=== PATIENT | male | born 1945 | race Caucasian/White ===

== ENCOUNTER 2016-10-11 09:31 | Inpatient (IN) | payer MEDICARE, MEDICAID ==
[2016-10-11] VITALS (13 sets, daily range): BP systolic 80–122; BP diastolic 52–101; PULSE 76–107; RESP 18–20; O2SAT 95–98
[~2016-10-11] VITALS: Ht 170.2 cm; Wt 78.9 kg
[~2016-10-11 09:31] MED LIST: ADV250INHA INH; GLU500 PO; INSLEVPEN SC; METO50TA PO; TAM4 PO; ZES20T PO; ZOC20 PO
--- NOTE | 2016-10-11 09:52 | ED.REPORT ---
HPI-General Illness Date of Service Oct 11, 2016 ED Provider: Ruddy Waters DO Patient is a 71 year old male with a hx of DM, HTN, COPD, and brain tumor who presents to the ED complaining of lightheadedness and dizziness over the last 2 weeks. Associated symptoms include being pale, diaphoretic, generalized weakness , and urinary frequency. He denies cough, fever, chills, chest pain, SOB, abdominal pain, nausea, vomiting, diarrhea, dysuria, urinary retention, numbness , focal weakness, headache, or any other symptoms. He was taken off his seizure medication 2 months ago. Nursing Notes Stated Complaint: DIZZY Chief Complaint: General Complaint Nursing Notes Reviewed: Yes Allergies: Coded Allergies: No Known Allergies (Verified Allergy, Unknown, 10/11/16) Scheduled Flutic/Salmet-Expunged Drug, Do Not Renew! (Advair 250/50-Expunged Drug, Do Not Renew!) 250 Mcg/50 Mcg Disk 1 PUFF INH BID For Asthma/COPD Management. Insulin DETEMIR -Expunged Drug, Do Not Renew! (Levemir-Expunged Drug, Do Not Renew!) 3 Ml Syringe 35 UNIT SC DAILY Lisinopril-Expunged Drug, Do Not Renew! (Lisinopril-Expunged Drug, Do Not Renew! ) 20 Mg Tablet 20 MG PO QAM Metformin-Expunged Drug, Do Not Renew! (Metformin-Expunged Drug, Do Not Renew!) 500 Mg Tablet 500 MG PO BID Metoprolol Tart-Expunged Drug, Do Not Renew! (Metoprolol Tart-Expunged Drug, Do Not Renew!) 50 Mg Tablet 50 MG PO BID Simvastatin-Expunged Drug, Choose New Med! (Simvastatin-Expunged Drug, Choose New Med!) 20 Mg Tablet 20 MG PO HS Tamsulosin-Expunged Drug, Do Not Renew! (Flomax-Expunged Drug, Do Not Renew!) 0.4 Mg Capsule 0.4 MG PO DAILY General Time Seen by MD: 09:41 Chief Complaint Dizziness Hx Obtained From: Patient, Furniture Sales Consultant Arrived By: Walk-in Onset Occurred: More than a week ago... (2 weeks) Symptom Duration: Since onset Severity: Current: No pain currently Severity: Maximum: No pain Past Medical History Past Medical History Notes: Full code as of 2010 Past Medical History Pt is deaf and uses ASL 1. Asthma. 2. BPH. 3. Elevated cholesterol. 4. Diabetes. 5. Gout. 6. Hypertension. 7. History of aortic stenosis. 8. Exertional dyspnea. 9. Compartment syndrome, right thigh. 10. Remote history of heart murmur. 11. Keen procedure. 12. Valvular heart disease 13. COPD 14. DJD 15. brain tumor Past Surgical History Knee surgery R thigh surg brain tumor removal Smoking History Former Smoker Social History Other Social History: Good social support Ambulatory Status Independent Review of Systems +pale Full Review of Systems Constitutional: Denies: Chills, Fever Respiratory: Denies: Non-productive cough, Shortness of breath Cardiovascular: Denies: Chest pain GI: Denies: Abdominal pain, Diarrhea, Nausea, Vomiting Male: Reports Urinary frequency, Denies Dysuria, Denies Urination decreased Skin: Reports Diaphoresis Neurologic: Reports: Dizziness, Lightheaded, Denies: Focal weakness, Headache, Numbness Complete sys rev & neg: except as marked. Physical Exam Vital Signs Vital Signs Date Time Temp Pulse Resp B/P Pulse Ox O2 Delivery O2 Flow Rate FiO2 10/11/16 12:11 93 20 116/101 98 Room Air 10/11/16 10:59 92 20 102/74 97 Room Air 10/11/16 09:35 107 18 95/67 97 Room Air Initial VS: Reviewed, Vital signs abnormal Head / Eyes: Atraumatic, Normocephalic, PERRL Neck: Supple, Full range of motion Skin: Warm, Dry Psychiatric: Mood/affect normal, Behavior normal, Normal thought content General/Constitutional: Awake, Alert, No acute distress Respiratory / Chest: Atraumatic, Breath sounds NL, Breath sounds = bilat, No respiratory distress Heart Rate / Rhythm: Positive: Tachycardia Abdomen: Atraumatic, Soft, Non-tender Neurologic: Oriented X3 [place] of hearing, uses ASL Smile symmetric moving all 4 extremities Interpretation & Diagnostics Lab Results Interpretation Result Diagram: 10/11/16 0953 10/11/16 0953 Test 10/11/16 09:53 10/11/16 11:05 White Blood Count 11.0th/mm3 (3.8-10.1) Red Blood Count 4.98mil/mm3 (4.40-5.80) Hemoglobin 14.5g/dL (13.8-17.2) Hematocrit 41.2% (41.0-50.0) Mean Corpuscular Volume 82.7fL (81-100) Mean Corpuscular Hemoglobin 29.1pg (27.0-35.0) Mean Corpuscular Hemoglobin Concent 35.2% (32.0-37.0) Red Cell Distribution Width 13.6% (12.3-15.4) Platelet Count 230bil/L (150-400) Neutrophils (%) (Auto) 76.3% (40-74) Lymphocytes (%) (Auto) 12.2% (14-46) Monocytes (%) (Auto) 7.4% (4-12) Eosinophils (%) (Auto) 1.7% (0-5) Basophils (%) (Auto) 0.5% (0-3) Prothrombin Time 10.1sec (8.1-12.5) Prothromb Time International Ratio 0.95ratio Activated Partial Thromboplast Time 30.4sec (22.8-33.0) D-Dimer 0.64mg/L FEU (<0.50) Sodium Level 132mEq/L (134-144) Potassium Level 5.2mEq/L (3.5-5.2) Chloride Level 90mEq/L (97-108) Carbon Dioxide Level 22mmol/L (18-29) Blood Urea Nitrogen 58mg/dL (8-27) Creatinine 1.83mg/dL (0.76-1.27) Estimat Glomerular Filtration Rate 39mL/min (>59) Glucose Level 401mg/dL (60-99) Lactic Acid Level 2.6mmol/L (0.4-2.0) Calcium Level 10.1mg/dL (8.5-10.1) Magnesium Level 1.6mg/dL (1.6-2.6) Total Bilirubin 0.5mg/dL (0.0-1.2) Aspartate Amino Transf (AST/SGOT) 23U/L (0-50) Alanine Aminotransferase (ALT/SGPT) 16U/L (0-44) Alkaline Phosphatase 91U/L (25-160) Total Creatine Kinase 142U/L (21-232) Creatine Kinase MB 11.2ng/mL (0.0-10.4) Creatine Kinase MB % 7.9% (0.0-5.0) Troponin T 0.454ug/L (0.0-0.011) Total Protein 7.6g/dL (6.4-8.4) Albumin 4.4g/dL (3.4-5.0) Hold Aldana Top Tube Received (Received) Ketones Negative (Negative) Hold Urine Received (Received) ECG Interpretation ECG Interpretation: Ectopic atrial tachycardia, unifocal Probable left atrial enlargement LBBB - new rate 105 Time: 09:44 Interpreted by: ED physician ECG Interpretation: Sinus rate 89 LBBB Time: 12:37 Interpreted by: ED physician ABG Interpretation ABG Interpretation: pH 7.368 Exam Performed by: Allied health pract Exam Interpreted by: ED physician X-Ray Chest Interpretation Chest Xray Interpretation: IMPRESSION: 1. No acute cardiopulmonary disease. Dictated by: Hiren Montes M.D. on 10/11/2016 at 10:18 Approved by: Hiren Montes M.D. on 10/11/2016 at 10:18 View: Portable, 1 view Interpretation / Wet Read by: Interpret - ED physician CT Head Interpretation IMPRESSION: 1. No acute intracranial abnormality. 2. Postsurgical changes redemonstrated in the right frontal lobe with associated encephalomalacia. 3. Mild chronic white matter small vessel ischemic changes and cerebral volume loss. Dictated by: Hiren Montes M.D. on 10/11/2016 at 10:32 Approved by: Hiren Montes M.D. on 10/11/2016 at 10:34 Study: Head CT no contrast Interpretation / Wet Read by: Interpret - Radiologist Re-Eval/Medical Decision Med Decision/Clinical Course Non-ST elevation [place]. Will admit. Heparin as well as other medications initiated in the ER. Multiple conversations with cardiology. Time of Eval: 11:11 Patient Status: Condition unchanged Re-Evaluation/Progress Note: Rechecked pt who still denies chest pain and SOB. He does admit to dyspnea upon exertion. Discussed lab results and plan for admission. Patient understands and agrees with plan. All questions addressed at this time. Consultation #1: Referral / Consult Name: Johann Berger MD Consulted With: Cardiology Call Returned at: 11:58 Death Claim Clerk: Will see patient, Agrees with eval, Agrees with plan Note: Rechecked pt. Suggests ECHO, Aspirin, Plavix, heparin, atorvastatin, and metoprolol. Will see pt. Consultation #2: Referral / Consult Name: Carson Zheng MD Consulted With: Hospitalist Call Returned at: 12:06 Note: Discussed pt's case. Accepts admit Consultation #3: Referral / Consult Name: Johann Berger MD Consulted With: Cardiology Call Returned at: 12:10 Note: Discussed consultation with hospitalist. Would like consultation with Dr. Borges. Consultation #4: Referral / Consult Name: Alejandro Borges MD Consulted With: Cardiology Call Returned at: 12:14 Note: Discussed pt's case. Will see pt. Counseled Regarding: Diagnosis, Lab results, Need for admission Discharge & Departure Primary Impression: NSTEMI (non-ST elevated myocardial infarction) Disposition: ADMITTED TO HOSPITAL Discharge Condition All VS Reviewed: Yes Condition: Stable Referrals: Sujey Horta PAC (PCP) Crit Care Except Billable Proc Time Spent: 30-74 minutes Services Performed: Patient management by me, Time spent at bedside, Reviewing test results, Reviewing imaging, Discussing patient care, Documentation in record Critical Care Notes: 35 minutes Scribe Attestation Portions of this note were transcribed by Case Rutledge. I, Dr. Waters personally performed the history, physical exam and medical decision-making; I reviewed and confirmed the accuracy of the information in the transcribed note. Signed: Karly Alcazar, 10/11/16 copies to: Sujey Horta Timothy S DO Oct 11, 2016 09:51 CASE RUTLEDGE Oct 11, 2016 09:59
[2016-10-11] MEDS ORDERED: 0.9% Sodium Chloride 1,000 ML IV ONE (09:55)
[2016-10-11 10:12] LABS: BASOPHILS % (AUTO) 0.5 % (0-3); EOSINOPHILS % (AUTO) 1.7 % (0-5); MONOCYTES % (AUTO) 7.4 % (4-12); Mean Corpuscular Hemoglobin 29.1 pg (27.0-35.0); Mean Corpuscular Volume 82.7 fL (81-100); NEUTROPHILS % (AUTO) 76.3 % (40-74); Platelet Count 230 bil/L (150-400)
--- NOTE | 2016-10-11 10:20 | DRSVH ---
PROCEDURE: X-RAY CHEST ONE VIEW, PORTABLE ([id number]) INDICATIONS: sob TECHNIQUE: One view of the chest was acquired. COMPARISON: [facility], CR, XR CHEST 1VW (PORTABLE), 07/07/2015, 12:26. FINDINGS: Surgical changes and devices: None. Lungs and pleura: No pleural effusions or pneumothorax. Lungs are clear. Mediastinum: Mediastinal contours appear normal. Heart size is normal. Bones and chest wall: No suspicious bony lesions. Overlying soft tissues appear unremarkable. IMPRESSION: 1. No acute cardiopulmonary disease. Dictated by: Hiren Montes M.D. on 10/11/2016 at 10:18 Approved by: Hiren Montes M.D. on 10/11/2016 at 10:18
[2016-10-11 10:30] LABS: INR 0.95 ratio
--- NOTE | 2016-10-11 10:36 | DRSVH ---
PROCEDURE: CT BRAIN WITHOUT CONTRAST ([id number]) INDICATIONS: dizziness, h/o brain tumor TECHNIQUE: Noncontrast 4.5 mm thick angled axial sections acquired from the foramen magnum to the vertex, with c oronal reformats. COMPARISON: [facility], CT, CT BRAIN WO CON, 07/07/2015, 11:27. FINDINGS: Image quality: Excellent. CSF spaces: Basal cisterns are patent. No extra-axial fluid collections. There is mild cerebral vo lume loss, with resultant ventricular and sulcal prominence. Brain: No intracranial hemorrhage, mass, or mass effect. There is encephalomalacia within the right frontal lobe redemonstrated consistent with postsurgical changes. There are subcortical, periventric ular and deep white matter hypodensities consistent with mild chronic small vessel ischemic changes. There is intracranial internal carotid artery atherosclerosis. Skull and face: Calvarium and visualized facial bones demonstrate no acute fractures. There are pos t craniotomy changes in the right frontal lobe again noted. Sinuses: Visualized sinuses and mastoids are clear. IMPRESSION: 1. No acute intracranial abnormality. 2. Postsurgical changes redemonstrated in the right frontal lobe with associated encephalomalacia. 3. Mild chronic white matter small vessel ischemic changes and cerebral volume loss. Dictated by: Hiren Montes M.D. on 10/11/2016 at 10:32 Approved by: Hiren Montes M.D. on 10/11/2016 at 10:34
[2016-10-11 10:55] LABS: Magnesium 1.6 mg/dL (1.6-2.6)
[2016-10-11 11:03] LABS: TROPONIN T 0.454 ug/L (0.0-0.011)
[2016-10-11] MEDS ORDERED: Heparin 25K Unit/500mL 0.45 NS 25,000 UNIT in IV Premix 1 EACH IV ONE (11:10)
[2016-10-11] MEDS ORDERED: 0.9% Sodium Chloride 1,000 ML IV SCH ×3 (11:10→13:10)
[2016-10-11] MEDS ORDERED: Heparin 5,000 Unit/mL Inj IVPUSH ONE (11:10)
--- NOTE | 2016-10-11 11:39 | ABG ---
DateTimeAnalyzed 11:30:00 -_ pH ____7.368 - 7.350 7.450 pCO2 ___41.7__ -mmHg 35.0 45.0 pO2 ___42.5__ -mmHg 69.0 116 HCO3- ___23.4__ -mmol/L 22.0 26.0 ABE ___-1.3__ -mmol/L -2.0 2.0 tHb ___13.6__ -g/dL 12.0 18.0 O2Hb ___71.8__ -% COHb ____1.0__ -% 0.0 1.5 MetHb ____1.0__ -% 0.4 1.5 sO2 ___73.3__ -% FIO2 ___21.0__ -% Drawn By Margaret-RN - Date/Time Notified____ 11:38:00 -_ Oxygen Device 1 RA - Notified By lw - Notified Whom ___Dr. O'Aruna - B 758 -mmHg tO2 ___13.7__ -Vol% Carson test N/A -
[2016-10-11 12:05] LABS: Creatine Kinase 142 U/L (21-232)
[2016-10-11] MEDS ORDERED: Insulin Human REGular-Omnicell 100 Unit/mL SUBQ ONE (12:05)
[2016-10-11] MEDS ORDERED: Ondansetron 2 mg/mL 2 mL Inj IVPUSH PRN (13:00)
[2016-10-11] MEDS ORDERED: Polyethylene Glycol (PEG) 17 Gm Powder PO PRN (13:00)
[2016-10-11] MEDS ORDERED: Senna-Docusate 8.6-50 mg Tablet PO PRN (13:00)
[2016-10-11] MEDS ORDERED: Atropine 1 mg/10 mL (Code) Syringe IVPUSH PRN (13:00)
[2016-10-11] MEDS ORDERED: Alum-Mag Hydrox-Simeth 30 mL Suspension PO PRN (13:00)
[2016-10-11] MEDS ORDERED: Heparin 25K Unit/500mL 0.45 NS 25,000 UNIT in IV Premix 1 EACH IV SCH (13:20)
[2016-10-11] MEDS ORDERED: Albuterol-Ipratropium 3 mL Inhalation Solution NEB PRN (13:25)
[2016-10-11] MEDS ORDERED: Glucose 40% Oral Gel 15 Gm Tube PO PRN (13:25)
[2016-10-11] MEDS: Insulin GLARgine 100 Unit/mL Syringe SUBQ SCH ×2 (13:25→21:13)
--- NOTE | 2016-10-11 13:42 | PCM.HPMED ---
Subjective Date of Service Oct 11, 2016 Primary Provider: Admitting Physician: Carson Zheng MD Primary Care Physician: Lucia Baez PA-C Attending Physician: Carson Zheng MD Chief Complaint: Patient is a 71-year-old male from home presented to the ED with dizziness. History of Present Illness: Conclusion carries a medical history that includes diabetes type II insulin- dependent, hypertension, dyslipidemia, and asthma. Per patient, he reports having dizziness this morning while getting up from chair, waiting for a friend's ride to a synagogue. He denies any associated symptoms that includes palpitation, chest pain radiating to the neck or arm, SOB , diaphoresis, or nausea or vomiting. Patient states significant dizziness for the past 2 weeks with any exertion or transiting from a sitting to standing position. Patient has noted significant urinary output with the past week with corresponding increasing polydipsia. Patient reports trying to drink as much water as he can although and does not record how much what he actually taken. Patient denies any headache, sore throat, fevers, chills, night sweats, abdominal pain, judy red blood/ tarry stooling, or unilateral tingling/ numbness. In the ED, patient blood pressure initially soft at 95/67. However rebounded to over 116/101 after 1 L of normal saline. EKG was obtained showed newly diagnosed left bundle branch block Routine lab work revealed an elevated troponin T as well as CK and CK-MB. interventional cardiology first contacted for possible emergent PCI, however due to patient asymptomatic un the setting of acute kidney injury, interventionists recommend maximal medical management. Echocardiogram states that pending. Patient received metoprolol in addition to loading dose of Plavix, atorvastatin, and heparin drip prior to admission onto the medical floor for NSTEMI. Review of Systems: A comprehensive review of systems was conducted with the patient and found to be negative except as above in the History of Present Illness. 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 Diabetes type II Developmental delay History of CHF Congenital deafness Compartment syndrome June 2011 Brain abscess 07/07/2015 Aortic valve stenosis Surgical History Evacuation and incident incision and drainage of abscess right brain 07/09/2015 Family History Mother with lung disease Father with heart disease Social History Hx Alcohol Use: No (QUIT 2009) Hx Substance Use: No Hx Tobacco Use: No Smoking Status: Former Smoker Exam Vital Signs Vital Sign - Last Date Time Temp Pulse Resp B/P Pulse Ox O2 Delivery O2 Flow Rate FiO2 10/11/16 12:11 93 20 116/101 98 Room Air Exam General: No acute distress, appropriately interactive HEENT: Normocephalic, atraumatic. PERRLA, bilateral deafness Neck: No JVD, No bruits. No lymphadenopathy or thyromegaly. Cardiovascular: Regular rate and rhythm with no murmurs, rubs, or gallops appreciated Pulmonary: b/l air sound with no crackles, wheezes, or rhonchi. no use of accessory muscles. Abdomen: +Bowel sound, Soft, nontender, nondistended. Extremities: No clubbing or cyanosis, no lymphedema, no b/l lower leg edema Skin: Normal temperature, turgor, and texture; no rash. No visualized skin ulcer. Neurological: CN II-VII grossly intact, moving equally on all 4 extremities Psychiatric: Normal mood and affect. AOx3 Lab and Diagnostics Result Diagram: 10/11/1695210/11/16952 Assessment & Plan Patient is a 71-year-old male with a medical history significant for diabetes type II, hypertension, dyslipidemia, and asthma presented with dizziness, found to have significant troponin elevation, admitted for NSTEMI in addition to [place]. NSTEMI -Elevated troponin with newly diagnosed left bundle branch block -Received loading dose of Plavix, and cont metoprolol, atorvastatin, currently on heparin drip, holding tamsulosin -Emergent echocardiogram -aerodynamics engineer Dr. Borges, evaluated patient, emergency WOMEN'S APPAREL SALESPERSON not necessary at this juncture -Career Representative Dr. Berger consult [place] -Creatinine function normal last year -Secondary to likely dehydration from auto diuresis, blood sugar 411 -holding lisinopril -Normal saline 100 mL/hr -orthostatics ordered Insulin-dependent diabetes type II -takes home Levemir U100 35u daily -Lantus 20u bid with high sliding scale while in-house -A1c pending Mild leukocytosis -likely stressed induced -UA order Hypertension -cont home metoprolol, holding lisinopril as above Dyslipidemia -Atorvastatin daily -lipid panel pending Asthma -cont home advair -duoneb prn DVT prophylaxis heparin CODE STATUS full code Patient Status: Patient is admitted under inpatient status with expected length of stay GREATER than 2 midnights due to severity of presenting symptoms, risk of adverse event, and complexity of treatment plan. GI Prophylaxis: Not indicated Resuscitation Status: CPR: Attempt Resuscitation Time spent 45 minutes Attending Statement The patient was seen and examined together with on October 11 and I agree with the history, exam findings, and plan as outlined in the note above. I did participate in all aspects of the services provided today, including documentation and the plan of care. This patient will be treated medically. We will trend his troponins. Cardiology has noted his severe aortic stenosis which may well account for many of her symptoms. Anticipate transfer to [facility] in [place] in the next 1-2 days for further evaluation and treatment of his critical aortic stenosis. Victor Manuel Chong DO Oct 11, 2016 13:42 Carson Zheng MD Oct 12, 2016 07:51
--- NOTE | 2016-10-11 14:52 | DRSVH ---
[facility] [address] [place] [place] [address] Echocardiogram Report Name: CHILANGO CALVO LStudy Date: 10/11/2016 Height: 67 in Hospital Exam Location: [facility] Weight: 180 lb Gender: Male BSA: 1.9 m2 : 1945 Age: 71 yrs BP: 116/101 m mHg Reason For Study: NSTEMI Ordering Physician: HOSPITALIST [facility] Performed By: Razia Akhtar Referring Physician: Naz Haas Interpretation Summary The left ventricle is normal in size. The ejection fraction is estimated to be 35-40%. Inferoseptum, apex and the distal anterior wall severely hypokinetic. There is worsening wall motions in inferior wall and the inferoseptum. Compared to the prior exam, the left ventricular function is mildly reduced. The right ventricle is normal size. Right ventricular systolic function is borderline reduced. There is severe mitral regurgitation. Compared to the prior echo study, there has been no change in the severity of mitral regurgitation. The aortic valve is severely calcified. Leaflet mobility is severely reduced. The peak aortic velocity is 3.65 m/sec. The aortic valve mean gradient is 37 mmHg. The peak aortic velocity on the previous exam was 4.2 m/sec. There is severe aortic stenosis.The calculated aortic valve area is 0.6 cm2. There is mild to moderate tricuspid regurgitation. Compared to the prior echo exam, there has been an increase in TR severity. The right ventricular systolic pressure is estimated at 49 mmHg assuming a right atrial pressure of 3 mm Hg. Compared to the prior echo exam, there has been an increase in the severity of pulmonary hypertension. Procedure: A two-dimensional transthoracic echocardiogram with color flow and Doppler was performed. The study quality was technically adequate. Comparison is made with the echocardiogram of 10/04/2015. The patient was in normal sinus rhythm during the exam. The patient had a bundle branch block rhythm during the exam. Left Ventricle: The left ventricle is normal in size. There is mild- moderate concentric left ventricular hypertrophy. There is no thrombus. The ejection fraction is estimated to be 35-40%. Compared to the prior exam, the left ventricular function is reduced. There is moderate global hypokinesis of the left ventricle. There is inferior wall severe hypokinesis. Inferoseptum, apex and the distal anterior wall severely hypokinetic. There is worsening wall motions in inferior wall and the inferoseptum. Assessment of diastolic parameters indicates a restrictive filling pattern of the left ventricle consistent with significantly elevated filling pressures. There has been no significant change since the previous study. Right Ventricle: The right ventricle is normal size. Right ventricular systolic function is borderline reduced. Atria: The left atrium is moderately dilated. The left atrium has mildly increased in size since the prior echo exam. The right atrium is normal in size. The interatrial septum is intact with no evidence for an atrial septal defect. Mitral Valve: The mitral valve leaflets appear mildly thickened, but open well. There is mild mitral annular calcification. The mitral valve chordae are thickened and/or calcified. There is severe mitral regurgitation. Compared to the prior echo study, there has been no change in the severity of mitral regurgitation. Aortic Valve: The aortic valve is severely calcified. Leaflet mobility is severely reduced. The aortic valve mean gradient is 37 mmHg. The peak aortic velocity is 3.65 m/sec. The peak aortic velocity on the previous exam was 4.2 m/sec. The calculated aortic valve area is 0.6 cm2. There is severe aortic stenosis. There is mild aortic regurgitation. Compared to the prior echo study, there has been no change in the severity of aortic regurgitation. Tricuspid Valve: The tricuspid valve is not well visualized, but is grossly normal. There is mild to moderate tricuspid regurgitation. The right ventricular systolic pressure is estimated at 49 mmHg assuming a right atrial pressure of 3 mm Hg. Compared to the prior echo exam, there has been an increase in TR severity. Compared to the prior echo exam, there has been an increase in the severity of pulmonary hypertension. Pulmonic Valve: The pulmonic valve is not well seen, but is grossly normal. There is mild pulmonic regurgitation. Great Vessels: The aortic root is normal size. The ascending aorta could not be visualized. The IVC is of normal diameter and collapses greater than 50% with a sniff. This suggests a low right atrial pressure of 3 mm Hg. Pericardium/ Pleura There is no pericardial effusion. There is an anterior echo-free space consistent with a fat pad. There is no pleural effusion. MMode/2D Measurements & Calculations LVIDd: 5.1 cm RA long axis LVOT diam LVIDs: 3.3 cm LA A2 area: 17.9 cm : 2.0 cm FS: 34.9 % LA A4 area: 19.4 cm RA area IVSd: 1.4 cm LA length (vol): 5.9 cm LVPWd: 1.3 cm LA vol: 50.0 ml : 10.1 cm RA vol: 23.2 ml LA vol index: 25.9 ml/m2RA : 12.0 mm2 LV arreola. diameter/BSA LV sys. diameter/BSA TAPSE: 1.9 cm (cm/m^2): 2.6 (cm/m^2): 1.7 Doppler Measurements & Calculations Ao V2 max MV E max eric MV E/A TR max eric : 347.3 cm/sec : 121.5 cm/sec : 1.6 : 340.2 cm/sec Ao max P.4 mmHg MV A max eric TR max P.3 mmHg Ao mean P.1 mmH.8 cm/sec MV dec time: 0.12 secAo V2 mean : 280.5 cm/sec Ao V2 VTI: 80.9 cm Reading Physician:PM
[2016-10-11 15:26] LABS: APPEARANCE,URINE CLEAR (CLEAR,HAZY); COLOR,URINE STRAW (YELLOW); OCCULT BLOOD,URINE NEGATIVE (NEGATIVE); UROBILINOGEN,URINE NORMAL (NORMAL)
[2016-10-11] MEDS ORDERED: 0.9% Sodium Chloride 250 ML IV ONE (15:45)
[2016-10-11] MEDS: Sodium Chloride LOK Flush 10 mL Syringe IVFLUSH SCH (16:30)
--- NOTE | 2016-10-11 17:51 | CONS ---
[address] [address] CONSULTATION REPORT PATIENT: CHILANGO CALVO : 1945 MR#: [id number] ADMIT: 10/11/2016 JOB ID: [id number] DATE OF SERVICE: 10/11/2016 REASON FOR CONSULT: Hospitalist team asked me to see this patient regarding abnormal troponin, left bundle-branch and dizziness. CHIEF COMPLAINT: Dizziness, shortness of breath. PRESENT HISTORY: The patient is congenitally deaf. He does not speak much, however, I have his power of prosecuting attorney, who communicates with him using facial language. He helped me to get history. This 71-year-old, pleasant male who has a history of severe aortic stenosis with aortic valve area about 0.6 cm2 with LV ejection fraction 40% to 45% with predominantly global hypokinesis, peak aortic valve velocity 4.2 m/sec and mean gradient 42 mmHg based on echocardiogram done in September 2015, with severe mitral regurgitation, history of brain abscess treated about a year ago at [facility], details not available, history of seizure that time, essential hypertension, insulin-requiring diabetes mellitus, who is congenitally deaf, development delay, history of CHF, compartment syndrome, came to the hospital because of above-mentioned chief complaint. The patient lives with his partner. He is able to perform day-to-day activities but from last two weeks he was experiencing dizziness especially transitioning from sitting to standing position. He was also experiencing shortness of breath on exertion, sometimes PND-like episodes but without any chest pain or palpitation. The patient did not have any syncope. Denies any fever or chills, sore throat or rashes or new visual symptoms. He has poor vision as well. No hematuria. No active bleeding. He underwent evaluation in the emergency department. He was found to have left bundle-branch block. Case was discussed with property preservation specialist, Dr. Borges, as well. His troponin was abnormal, hence, Cardiology got involved. The patient underwent echocardiogram today. On echocardiogram, left ventricular size is normal. LV ejection fraction 35% to 40% with global hypokinesis of moderate intensity but worsening inferior wall apex, inferior septum and distal anterior wall hypokinesis. Right ventricular function borderline reduced. No obvious mitral valve prolapse or flail leaflet, however, the patient has severe mitral regurgitation. There appears to be severe aortic stenosis which appears to be low gradient likely due to worsening LV dysfunction. The peak aortic valve velocity at this time is 3.65 m/sec and mean gradient about 37 mmHg. Calculated aortic valve area 0.6 cm2. In September 2015, peak aortic valve velocity was 4.2 m/sec. There is [id number] tricuspid regurgitation and pulmonary artery systolic pressure about 49 mmHg. The patient was seen by Dr. Roblero in the past. In December 2011, he underwent right and left heart catheterization. At that time, he did not have any obvious epicardial significant coronary artery atherosclerotic disease. At that time, calculated aortic valve area was 1.31 cm2. 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 When I asked about previous history of endocarditis, patient denies it. ALLERGIES: No known allergies. MEDICATION: 1. Advair 1 puff twice a day. 2. Levemir insulin 135 units daily. 3. Lisinopril 20 mg in the morning. 4. Metformin 500 mg twice a day. 5. Metoprolol 50 mg twice a day. 6. Simvastatin 20 mg twice a day. 7. Flomax 0.4 mg daily. FAMILY HISTORY: Positive for heart and lung disease. SOCIAL HISTORY: No tobacco abuse or alcohol abuse. PAST SURGICAL HISTORY: As stated above. REVIEW OF SYSTEMS: A 10-point review of systems were obtained through the spanish medical interpreter. They are negative except as stated above. PHYSICAL EXAMINATION: In the left arm blood pressure 81/52, however, right thigh and left thigh blood pressure 121-122 systolic and 55-77 diastolic. Respiratory rate 18 to 20, heart rate 77, oxygen saturation on room air 95%. At present, he does not appear to be in any significant distress. No significant anemia, jaundice. Neck: No apparent JVD. Chest: No obvious crepitation or rhonchi. CVS: S1 appears normal. Second heart sound soft. Grade 2 to 3/6 musical ejection systolic murmur all over the precordium. Abdomen: No obvious pulsatile mass or hepatosplenomegaly. Extremities: No significant pedal edema. Vascular: No evidence of critical limb ischemia. CASH MANAGEMENT COORDINATOR: The patient is able to move all the four extremities. He is alert, oriented to time, place, and person. LABORATORIES: Sodium 132, potassium 5.2, BUN 58, creatinine 1.8. July 07, 2015, BUN was 20, creatinine 1.15. Magnesium 1.6 with normal AST and ALT. Troponin T 0.054. WBC 11.0, hemoglobin 14.5, platelets 230, polymorphs 76.3, PTT 30.4, INR 0.95. CT brain today: No acute intracranial abnormality. Mild chronic white matter small-vessel ischemic changes and postsurgical changes in the right frontal lobe with associated encephalomalacia. X-ray of chest: No active cardiopulmonary disease. Heart size is reported to be normal. EKG revealed sinus rhythm with left bundle-branch block which appears to be new. ASSESSMENT AND PLAN: Severe aortic stenosis with aortic valve area about 0.6 cm2 with severe mitral regurgitation which appears to be secondary likely due to severe aortic stenosis with underlying worsening LV dysfunction, now LV ejection fraction 35% to 40% with mostly global hypokinesis, however worsening wall motion abnormality in the inferior septum and inferior wall with moderate pulmonary hypertension, worsening renal insufficiency with underlying history of insulin-requiring diabetes mellitus, hypertension, etc. The patient had left heart catheterization in December 2011. At that time, he did not have any significant coronary artery disease. Hence, at this point of time, I do not think that we are dealing with acute coronary syndrome. I think we are dealing with sequelae of severe aortic stenosis. His dizziness has postural component with some orthostatic component as well. However, the patient may have dizziness due to severe aortic stenosis. He is symptomatic with severe aortic stenosis. He is developing conduction problems as well. There is LV dysfunction, hence, at this point of time, there is absolute indication for aortic valve surgery. I discussed with the patient with the help of spanish medical interpreter that there is no medical treatment. It is a surgical case. He agreed to be evaluated at the center where he can have transcutaneous aortic valve replacement surgery. I called [facility] and spoke to Dr. Wade Isidro. Dr. Isidro graciously accepted the patient, however, he recommended to wait until Wednesday when he will be back and get this patient transferred over there. Meanwhile, I will continue aspirin and heparin for the time being but will stop the Plavix. He is getting IV fluids which I will stop at present. I will hold COSME inhibitor as well. Cardiology service will continue to follow this patient in the hospital as needed. Thanks for the cardiology consult. TOTAL TIME SPENT: Today having discussion with Dr. Wade Isidro and talking to the patient with the help of an spanish medical interpreter, reviewing the old records about 1.5 hours.
[2016-10-11] MEDS: Insulin LISPRO 300 Unit/3 mL Inj SUBQ SCH ×2 (18:32→21:18)
[2016-10-11] MEDS: Fluticasone-Salmererol 250-50 Inhaler INHALATION SCH (21:05)
[2016-10-12] VITALS (9 sets, daily range): BP systolic 96–145; BP diastolic 65–87; PULSE 73–96; RESP 18–20; O2SAT 93–96
[2016-10-12] MEDS: Sodium Chloride LOK Flush 10 mL Syringe IVFLUSH SCH ×4 (00:30→22:24)
[2016-10-12] MEDS: Insulin LISPRO 300 Unit/3 mL Inj SUBQ SCH ×4 (08:00→21:14)
[2016-10-12] MEDS: Fluticasone-Salmererol 250-50 Inhaler INHALATION SCH ×2 (08:06→21:12)
[2016-10-12] MEDS ORDERED: Furosemide 10 mg/mL 2 mL Inj IVPUSH ONE (10:30)
[2016-10-12] MEDS ORDERED: SIMV40TA5 PO (11:00)
[2016-10-12] MEDS ORDERED: INSU100I13 SQ (11:00)
[2016-10-12] MEDS ORDERED: CARV3.122 PO (11:00)
[2016-10-12] MEDS ORDERED: TAMS0.4C29 PO (11:00)
[2016-10-12] MEDS ORDERED: FURO-128 PO (11:00)
[2016-10-12] MEDS ORDERED: LISI10TA PO (11:00)
[2016-10-12] MEDS ORDERED: METF500T7 PO (11:02)
--- NOTE | 2016-10-12 11:29 | PROG NOTE ---
[address] [address] PROGRESS NOTE PATIENT: CHILANGO CALVO : 1945 MR#: [id number] ADMIT: 10/11/2016 JOB ID: [id number] DATE: 10/12/2016 SUBJECTIVE: The patient was examined in the presence of diesel service apprentice, as he is congenitally deaf. Today, he appears hemodynamically stable. He is not in any distress. He is not having any active chest pain or worsening shortness of breath. No new cardiovascular symptoms. OBJECTIVE: Blood pressure 145/87, heart rate 86, respiratory rate 18, oxygen saturation 95%. Neck: No apparent JVP. Chest: Decreased air entry at the bases. CVS: S1 appears normal. P2 appears soft. Grade 2-3 x6 musical systolic ejection murmur all over the precordium. Abdomen: No obvious pulsatile mass. Extremities: No significant pedal edema. MANAGED CARE MANAGER: The patient is conscious. Vascular: No evidence of critical limb ischemia. Telemetry: The patient is in sinus rhythm with 1st-degree AV block, intraventricular conduction delay, some occasional PVCs. LABORATORIES: Hemoglobin 13.9. Sodium 134, potassium 5.3, BUN 55, creatinine 1.8, yesterday creatinine was 1.83, and BUN 58. Troponin-T peak of 0.479. Hemoglobin A1c 10.8. Triglycerides 141, total cholesterol 126, LDL 64, HDL 33. ASSESSMENT AND PLAN: Severe aortic stenosis which is progressively getting worse, with worsening left ventricular (LV) dysfunction, now LV ejection fraction 35-40%. It was 40-45% in September 2015. At that time, peak aortic valve velocity was 4.2 m/sec and mean gradient 49 mmHg. The patient has severe mitral regurgitation at that time as well. This time also he has severe mitral regurgitation without any significant structural mitral valve problem. The patient had left heart catheterization in December 2011. At that time, he did not have any significant coronary artery disease. At present, the patient is symptomatic with severe aortic stenosis. He also has underlying congenital deafness, history of brain abscess surgery about a year ago, history of seizure, diabetes mellitus, which is insulin requiring, essential hypertension, as well as renal insufficiency. As I mentioned in my yesterday note, I spoke to Dr. Wade Isidro at [facility] regarding TAVR procedure. Dr. Isidro has accepted the patient. However, he will be back in the morning tomorrow and get this patient over there. He has a positive balance of 1705 mL yesterday. I will give him 20 mg of Lasix IV today. Clinically, he does not appear to be in gross volume overload. At present, we are holding COSME inhibitor in view of severe aortic stenosis and underlying renal insufficiency. Once TAVR procedure is completed, then we will recommend re-initiating COSME inhibitor. Discussed the plan with the patient through the diesel service apprentice, his power of corporate associate attorney, as well as hospitalist team. So far, his blood culture is pending. TOTAL TIME SPENT: Today, around 40 minutes.
[2016-10-12] MEDS: Heparin 5,000 Unit/mL Inj IVPUSH PRN ×2 (14:34→21:25)
--- NOTE | 2016-10-12 15:08 | PCM.PNMED ---
Subjective Date of Service Oct 12, 2016 Subjective Pt without overnight events, denies any new complaints today. Patient reports feeling great. He denies any headache, dizziness, lightheadedness. Echocardiogram yesterday revealed that patient has a severe aortic stenosis of 0.6 cm. According to Java Support Engineer Dr. Berger, aortic stenosis and likely the root cause of his admission and recommended that patient be evaluated by a cardiac surgeon Dr. Wade Isidro, phone #[phone] for valvular surgery on Wednesday10/13/2016 Exam Vital Signs Vital Sign - Last Date Time Temp Pulse Resp B/P Pulse Ox O2 Delivery O2 Flow Rate FiO2 10/12/16 11:53 36.9 88 18 120/78 95 Room Air Intake and Output 10/11/16 10/11/16 10/12/16 Cumulative From/Thru 15:00 23:00 07:00 10/11/16 09:35 - 10/12/16 05:16 Intake Total 1174 ml 681 ml 430 ml 2285 ml Output Total 150 ml 600 ml 750 ml Balance 1174 ml 531 ml -170 ml 1535 ml Intake Oral 100 ml 100 ml IV Total 1174 ml 681 ml 330 ml 2185 ml Output Urine Total 150 ml 600 ml 750 ml # Bowel Movements 0 0 Exam General: No acute distress, appropriately interactive HEENT: Normocephalic, atraumatic. PERRLA, bilateral deafness Neck: No JVD, No bruits. No lymphadenopathy or thyromegaly. Cardiovascular: Regular rate and rhythm with no murmurs, rubs, or gallops appreciated Pulmonary: b/l air sound with no crackles, wheezes, or rhonchi. no use of accessory muscles. Abdomen: +Bowel sound, Soft, nontender, nondistended. Extremities: No clubbing or cyanosis, no lymphedema, no b/l lower leg edema Skin: Normal temperature, turgor, and texture; no rash. No visualized skin ulcer. Neurological: CN II-VII grossly intact, moving equally on all 4 extremities Psychiatric: Normal mood and affect. AOx3 IVs and Medications Medications Reviewed: Medications were reviewed in detail Lab and Diagnostics Result Diagram: 10/12/1681410/12/16814 Assessment & Plan Patient is a 71-year-old male with a medical history significant for diabetes type II, hypertension, dyslipidemia, and asthma presented with dizziness, found to have significant troponin elevation, admitted for NSTEMI in addition to CLIFFORD. Critical aortic stenosis -Echocardiogram showed EF 35-40% with calcified aortic valvular area 0.6 cm -hypoperfusion likely caused the elevated troponin, newly diagnosed left bundle branch block, and kidney insufficiency -Received loading dose of Plavix, and cont metoprolol, atorvastatin, currently on heparin drip, holding tamsulosin -Java Support Engineer Dr. Berger consult and recommend as below -cont heparin drip and aspirin while holding off on fluids -Transfer patient for valvular surgery replacement at [facility] 10/13 Heart failure with reduced EF -2nd to severe -currently on statin, beta blockade, and ASA -lasix 20mg IV ordered -monitor weight, I/O's CLIFFORD -Creatinine function normal last year -likely dehydration from auto diuresis, blood sugar 411 with suspected underlining CKD -holding lisinopril, consider restart after aortic valvular surgery -judicious on fluids 2nd to severe . received 2.2L fluids in hospital. Insulin-dependent diabetes type II -takes home Levemir U100 35u daily -Lantus 20u bid with high sliding scale while in-house -A1c pending Mild leukocytosis -likely stressed induced -UA order Hypertension -cont home metoprolol, holding lisinopril as above Dyslipidemia -Atorvastatin daily -lipid panel pending Asthma -cont home advair -duoneb prn DVT prophylaxis heparin CODE STATUS full code Position: Patient likely be transferred to [facility] tomorrow 10/13/2016 for evaluation for valvular surgery. GI Prophylaxis: Not indicated Resuscitation Status: CPR: Attempt Resuscitation Attending Statement The patient was seen and examined together with on October 12 and I agree with the history, exam findings, and plan as outlined in the note above. I did participate in all aspects of the services provided today, including documentation and the plan of care. This patient will be diuresed and temporized with his critical aortic stenosis. Her livestock yard attendant discussed the case with cardiology in [place]. Anticipated transfer Wednesday for consideration of Victor Manuel Nobles DO Oct 12, 2016 15:08 Carson Zheng MD Oct 13, 2016 09:03
[2016-10-12] MEDS ORDERED: Insulin GLARgine 100 Unit/mL Syringe SUBQ SCH (21:00)
[2016-10-13 03:11] VITALS: BP 105/35; PULSE 88; RESP 17; O2SAT 96
[2016-10-13 07:37] VITALS: BP 138/84; PULSE 88; RESP 16; O2SAT 97
[2016-10-13 07:40] VITALS: PULSE 88
[2016-10-13] MEDS: Insulin LISPRO 300 Unit/3 mL Inj SUBQ SCH (08:00)
[2016-10-13] MEDS: Sodium Chloride LOK Flush 10 mL Syringe IVFLUSH SCH (08:36)
[2016-10-13] MEDS: Fluticasone-Salmererol 250-50 Inhaler INHALATION SCH (08:36)
--- NOTE | 2016-10-13 08:42 | PCM.DC.MED ---
Discharge Summary Date of Service Oct 13, 2016 Dates of Hospitalization Date of Hospital Admission Oct 11, 2016 at 12:43 Date of Discharge: Oct 13, 2016 Providers: Admitting Physician: Carson Zheng MD Primary Care Physician: Lucia Baez PA-C Attending Physician: Carson Zheng MD Procedures Cardiac Echo Impression Echocardiogram Report Name: CHILANGO CALVO LStudy Date: 10/11/2016 Height: 67 in Hospital Exam Location: [facility] Weight: 180 lb Gender: Male BSA: 1.9 m2 : 1945 Age: 71 yrs BP: 116/101 m mHg Reason For Study: NSTEMI Ordering Physician: [facility] Performed By: Razia Akhtar Referring Physician: Naz Haas Interpretation Summary The left ventricle is normal in size. The ejection fraction is estimated to be 35-40%. Inferoseptum, apex and the distal anterior wall severely hypokinetic. There is worsening wall motions in inferior wall and the inferoseptum. Compared to the prior exam, the left ventricular function is mildly reduced. The right ventricle is normal size. Right ventricular systolic function is borderline reduced. There is severe mitral regurgitation. Compared to the prior echo study, there has been no change in the severity of mitral regurgitation. The aortic valve is severely calcified. Leaflet mobility is severely reduced. The peak aortic velocity is 3.65 m/sec. The aortic valve mean gradient is 37 mmHg. The peak aortic velocity on the previous exam was 4.2 m/sec. There is severe aortic stenosis.The calculated aortic valve area is 0.6 cm2. There is mild to moderate tricuspid regurgitation. Compared to the prior echo exam, there has been an increase in TR severity. The right ventricular systolic pressure is estimated at 49 mmHg assuming a right atrial pressure of 3 mm Hg. Compared to the prior echo exam, there has been an increase in the severity of pulmonary hypertension. Procedure: A two-dimensional transthoracic echocardiogram with color flow and Doppler was performed. The study quality was technically adequate. Comparison is made with the echocardiogram of 10/04/2015. The patient was in normal sinus rhythm during the exam. The patient had a bundle branch block rhythm during the exam. Left Ventricle: The left ventricle is normal in size. There is mild- moderate concentric left ventricular hypertrophy. There is no thrombus. The ejection fraction is estimated to be 35-40%. Compared to the prior exam, the left ventricular function is reduced. There is moderate global hypokinesis of the left ventricle. There is inferior wall severe hypokinesis. Inferoseptum, apex and the distal anterior wall severely hypokinetic. There is worsening wall motions in inferior wall and the inferoseptum. Assessment of diastolic parameters indicates a restrictive filling pattern of the left ventricle consistent with significantly elevated filling pressures. There has been no significant change since the previous study. Right Ventricle: The right ventricle is normal size. Right ventricular systolic function is borderline reduced. Atria: The left atrium is moderately dilated. The left atrium has mildly increased in size since the prior echo exam. The right atrium is normal in size. The interatrial septum is intact with no evidence for an atrial septal defect. Mitral Valve: The mitral valve leaflets appear mildly thickened, but open well. There is mild mitral annular calcification. The mitral valve chordae are thickened and/or calcified. There is severe mitral regurgitation. Compared to the prior echo study, there has been no change in the severity of mitral regurgitation. Aortic Valve: The aortic valve is severely calcified. Leaflet mobility is severely reduced. The aortic valve mean gradient is 37 mmHg. The peak aortic velocity is 3.65 m/sec. The peak aortic velocity on the previous exam was 4.2 m/sec. The calculated aortic valve area is 0.6 cm2. There is severe aortic stenosis. There is mild aortic regurgitation. Compared to the prior echo study, there has been no change in the severity of aortic regurgitation. Tricuspid Valve: The tricuspid valve is not well visualized, but is grossly normal. There is mild to moderate tricuspid regurgitation. The right ventricular systolic pressure is estimated at 49 mmHg assuming a right atrial pressure of 3 mm Hg. Compared to the prior echo exam, there has been an increase in TR severity. Compared to the prior echo exam, there has been an increase in the severity of pulmonary hypertension. Pulmonic Valve: The pulmonic valve is not well seen, but is grossly normal. There is mild pulmonic regurgitation. Great Vessels: The aortic root is normal size. The ascending aorta could not be visualized. The IVC is of normal diameter and collapses greater than 50% with a sniff. This suggests a low right atrial pressure of 3 mm Hg. Pericardium/ Pleura There is no pericardial effusion. There is an anterior echo-free space consistent with a fat pad. There is no pleural effusion. MMode/2D Measurements & Calculations LVIDd: 5.1 cm RA long axis LVOT diam LVIDs: 3.3 cm LA A2 area: 17.9 cm : 2.0 cm FS: 34.9 % LA A4 area: 19.4 cm RA area IVSd: 1.4 cm LA length (vol): 5.9 cm LVPWd: 1.3 cm LA vol: 50.0 ml : 10.1 cm RA vol: 23.2 ml LA vol index: 25.9 ml/m2RA : 12.0 mm2 LV arreola. diameter/BSA LV sys. diameter/BSA TAPSE: 1.9 cm (cm/m^2): 2.6 (cm/m^2): 1.7 Doppler Measurements & Calculations Ao V2 max MV E max eric MV E/A TR max eric : 347.3 cm/sec : 121.5 cm/sec : 1.6 : 340.2 cm/sec Ao max P.4 mmHg MV A max eric TR max P.3 mmHg Ao mean P.1 mmH.8 cm/sec MV dec time: 0.12 secAo V2 mean : 280.5 cm/sec Ao V2 VTI: 80.9 cm Reading Physician:PM Brief History Conclusion carries a medical history that includes diabetes type II insulin- dependent, hypertension, dyslipidemia, and asthma. Per patient, he reports having dizziness this morning while getting up from chair, waiting for a friend's ride to a religious. He denies any associated symptoms that includes palpitation, chest pain radiating to the neck or arm, SOB , diaphoresis, or nausea or vomiting. Patient states significant dizziness for the past 2 weeks with any exertion or transiting from a sitting to standing position. Patient has noted significant urinary output with the past week with corresponding increasing polydipsia. Patient reports trying to drink as much water as he can although and does not record how much what he actually taken. Patient denies any headache, sore throat, fevers, chills, night sweats, abdominal pain, judy red blood/ tarry stooling, or unilateral tingling/ numbness. In the ED, patient blood pressure initially soft at 95/67. However rebounded to over 116/101 after 1 L of normal saline. EKG was obtained showed newly diagnosed left bundle branch block Routine lab work revealed an elevated troponin T as well as CK and CK-MB. interventional cardiology first contacted for possible emergent PCI, however due to patient asymptomatic un the setting of acute kidney injury, interventionists recommend maximal medical management. Echocardiogram states that pending. Patient received metoprolol in addition to loading dose of Plavix, atorvastatin, and heparin drip prior to admission onto the medical floor for NSTEMI. Hospital Course Patient is a 71-year-old male with a medical history significant for diabetes type II, hypertension, dyslipidemia, and asthma presented with dizziness, found to have significant troponin elevation, admitted initially for NSTEMI and CLIFFORD, subsequently discovered to have critical aortic stenosis with an area of 0.6 cm . Per cardiology, recommended that patient be transferred to Center with aortic valve repair capabilities. Patient remained stable with the past 2 days , telemetry unremarkable. Renal function however, creatinine steadily climbing upward. Critical aortic stenosis -Echocardiogram showed EF 35-40% with calcified aortic valvular area 0.6 cm -hypoperfusion likely caused the elevated troponin, newly diagnosed left bundle branch block, and kidney insufficiency -Received loading dose of Plavix on admin only. -[employer] Dr. 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 positive balance 2.2L fluids in hospital. Insulin-dependent diabetes type II -takes home Levemir U100 35u daily -Lantus 20u bid with high sliding scale while in-house -A1c10.08 Mild leukocytosis -likely stressed induced -UA positive for glucose only Hypertension -cont home metoprolol, holding lisinopril as above Dyslipidemia -Atorvastatin daily -lipid panel unremarkable, Triglyceride 141, cholesterol 126, HDL 33 Asthma -cont home advair -duoneb prn Exam Vital Signs (Last) Date Time Temp Pulse Resp B/P Pulse Ox O2 Delivery O2 Flow Rate FiO2 10/13/16 07:37 36.9 88 16 138/84 97 Room Air Exam General: No acute distress, appropriately interactive HEENT: Normocephalic, atraumatic. PERRLA, EOMI, Anicteric sclerae, moist conjunctivae. Neck: No JVD, No bruits. No lymphadenopathy or thyromegaly. Cardiovascular: Regular rate and rhythm, 2+ systolic heart murmur right upper sternal border Pulmonary: b/l air sound with no crackles, wheezes, or rhonchi. no use of accessory muscles. Abdomen: +Bowel sound, Soft, nontender, nondistended. Extremities: No clubbing or cyanosis, no lymphedema, no b/l lower leg edema Skin: Normal temperature, turgor, and texture; no rash. No visualized skin ulcer. Neurological: CN II-VII grossly intact, moving equally on all 4 extremities Psychiatric: Normal mood and affect. AOx3 Test 10/11/16 09:53 10/11/16 11:05 10/11/16 12:56 10/11/16 14:05 White Blood Count 11.0th/mm3 (3.8-10.1) Red Blood Count 4.98mil/mm3 (4.40-5.80) Mean Corpuscular Volume 82.7fL (81-100) Mean Corpuscular Hemoglobin 29.1pg (27.0-35.0) Mean Corpuscular Hemoglobin Concent 35.2% (32.0-37.0) Red Cell Distribution Width 13.6% (12.3-15.4) Platelet Count 230bil/L (150-400) Neutrophils (%) (Auto) 76.3% (40-74) Lymphocytes (%) (Auto) 12.2% (14-46) Monocytes (%) (Auto) 7.4% (4-12) Eosinophils (%) (Auto) 1.7% (0-5) Basophils (%) (Auto) 0.5% (0-3) Prothrombin Time 10.1sec (8.1-12.5) Prothromb Time International Ratio 0.95ratio D-Dimer 0.64mg/L FEU (<0.50) Lactic Acid Level 2.6mmol/L (0.4-2.0) Magnesium Level 1.6mg/dL (1.6-2.6) Total Bilirubin 0.5mg/dL (0.0-1.2) Aspartate Amino Transf (AST/SGOT) 23U/L (0-50) Alanine Aminotransferase (ALT/SGPT) 16U/L (0-44) Alkaline Phosphatase 91U/L (25-160) Total Creatine Kinase 142U/L (21-232) Creatine Kinase MB 11.2ng/mL (0.0-10.4) Creatine Kinase MB % 7.9% (0.0-5.0) Total Protein 7.6g/dL (6.4-8.4) Albumin 4.4g/dL (3.4-5.0) Hold Aldana Top Tube Received (Received) Ketones Negative (Negative) Hold Urine Received (Received) Thyroid Stimulating Hormone (TSH) 4.780uIU/mL (0.450-4.500) Urine Color Straw (YELLOW) Urine Appearance Clear (CLEAR,HAZY) Urine pH 5.0 (5.0-8.0) Urine Specific [place] 1.005 (1.003-1.035) Urine Protein Negativemg/dL (NEG,TRACE) Urine Glucose (UA) 1000mg/dL (NEGATIVE) Urine Ketones Negativemg/dL (NEGATIVE) Urine Occult Blood Negative (NEGATIVE) Urine Nitrite Negative (NEGATIVE) Urine Bilirubin Negative (NEGATIVE) Urine Urobilinogen Normalmg/dL (NORMAL) Urine Leukocyte Esterase Negative (NEGATIVE) Urine RBC 0-2/hpf (0-2) Urine WBC 0-5/hpf (0-5) Urine Epithelial Cells Few/hpf (NONE-MOD) Urine Crystals None seen (NONE SEEN) Urine Bacteria None/hpf (NONE-FEW) Urine Hyaline Casts None/lpf (NONE) Urine Granular Casts None seen (NONE SEEN) Urine Waxy Casts None seen (NONE SEEN) Urine Red Blood Cell Casts None seen (NONE SEEN) Urine White Blood Cell Casts None seen (NONE SEEN) Urine Mucus None seen (None Seen) Urine Trichomonas None seen (NONE SEEN) Urine Yeast None (NONE SEEN) Urinalysis Comment None Urine Culture Reflexed Not indicated Test 10/11/16 15:40 10/11/16 22:34 10/12/16 08:15 10/13/16 03:25 Hemoglobin A1c 10.8% (4.8-5.6) Troponin T 0.443ug/L (0.0-0.011) Triglycerides Level 141mg/dL (0-149) Cholesterol Level 126mg/dL (100-199) LDL Cholesterol, Calculated 64.800mg/dL (0-99) VLDL Cholesterol 28.200mg/dL HDL Cholesterol 33mg/dL (>39) Cholesterol/HDL Ratio 3.82 (0.0-4.4) Hemoglobin 13.5g/dL (13.8-17.2) Hematocrit 38.8% (41.0-50.0) Activated Partial Thromboplast Time 50.9sec (22.8-33.0) Sodium Level 133mEq/L (134-144) Potassium Level 5.2mEq/L (3.5-5.2) Chloride Level 96mEq/L (97-108) Carbon Dioxide Level 24mmol/L (18-29) Blood Urea Nitrogen 54mg/dL (8-27) Creatinine 2.05mg/dL (0.76-1.27) Estimat Glomerular Filtration Rate 34mL/min (>59) Glucose Level 198mg/dL (60-99) Calcium Level 9.1mg/dL (8.5-10.1) Today's lab 10/13/2016 Hemoglobin 13.5 Hematocrit 38.8 BMP Sodium 133, potassium 5.2, chloride 96, bicarbonate 24, BUN 54, creatinine 2.05 , up from yesterday 1.8, Glucose 198 Discharge Medications Discharge Medications Carvedilol (Carvedilol) 3.125 Mg Tablet 3.125 MG PO BID (Reported) Furosemide (Lasix) 40 Mg Tablet 40 MG PO DAILY (Reported) Insulin Glargine (Lantus U100 Solostar Insulin Pen) 100 Unit/1 Ml Insuln.pen 30 UNIT SQ HS (Reported) Lisinopril (Lisinopril) 10 Mg Tablet 10 MG PO DAILY (Reported) Metformin ER (Metformin ER) 500 Mg Tablet 500 MG PO BID (Reported) Simvastatin (Simvastatin) 40 Mg Tablet 40 MG PO HS (Reported) Tamsulosin ER (Tamsulosin ER) 0.4 Mg Cap.er.24h 0.4 MG PO Evening (Reported) Followup Plan Disposition: Transfer to [facility] in [facility] Follow-up plan Patient to be transferred to [facility] in [place] with accepting Dr. Wade Isidro Time spent 60 minutes Attending Statement The patient was seen and examined together with on January 12 and I agree with the history, exam findings, and plan as outlined in the note above. I did participate in all aspects of the services provided today, including documentation and the plan of care. The patient is stable for transfer to [facility] for evaluation for possible TAVR. The patient has progressive critical aortic stenosis and is becoming increasingly symptomatic. Victor Manuel Chong DO Oct 13, 2016 08:42 Carson Zheng MD Oct 13, 2016 12:38
[2016-10-13 09:05] VITALS: PULSE 87
== END 2016-10-13 11:15 | disposition short-term general hospital (02) | DRG 280 ==
LOC: SED 09:31 → PCC 12:43
PROVIDERS: ADMIT Hospitalist; ATTEND Hospitalist
PROC: 4A033R1 Measurement of Arterial Saturation, Peripheral, Percutaneous Approach (ICD-10-PCS; principal; 2016-10-11)
DX: I21.4 Non-ST elevation (NSTEMI) myocardial infarction (principal); I50.21 Acute systolic (congestive) heart failure; N17.9 Acute kidney failure, unspecified; E11.9 Type 2 diabetes mellitus without complications; I10 Essential (primary) hypertension; E78.5 Hyperlipidemia, unspecified; J45.909 Unspecified asthma, uncomplicated; I35.0 Nonrheumatic aortic (valve) stenosis; Z79.4 Long term (current) use of insulin; Z87.891 Personal history of nicotine dependence

== ENCOUNTER 2016-10-28 20:49 | Emergency (ER) | payer MEDICARE, MEDICAID ==
[~2016-10-28] VITALS: Ht 170.2 cm; Wt 81.8 kg
[~2016-10-28 20:49] MED LIST changes: -ADV250INHA INH; +CARV3.122 PO; +FURO-128 PO; -GLU500 PO; -INSLEVPEN SC; +INSU100I13 SQ; +LISI10TA PO; +METF500T7 PO; -METO50TA PO; +SIMV40TA5 PO; -TAM4 PO; +TAMS0.4C29 PO; -ZES20T PO; -ZOC20 PO
[2016-10-28 20:54] VITALS: BP 103/71; PULSE 86; RESP 16; O2SAT 99
--- NOTE | 2016-10-28 21:22 | ED.REPORT ---
HPI-General Illness Date of Service Oct 28, 2016 ED Provider: Beverly Martínez MD Mr. Yu is a 71-year-old male with a history of severe aortic stenosis with mitral regurgitation presented to the ED with a near syncopal episode. Patient was at [employer] walking from the bathroom to outside and started feeling very weak , dizziness, shortness of breath, and needed help to stay standing. When his family arrived, they noted that he looked very pale, was clammy, and his eyes were drifting off to one side. He was "unresponsive and frozen" for about 3 minutes before realizing his surroundings. He had a similar episode 2 weeks ago while at home. He was standing outside and started feeling short of breath. He felt weak and needed assistance to sit down at that time as well. He was found to have a NSTEMI at [facility] and was transferred to [place] where they evaluated him and consider the possibility of open heart versus transcatheter valve replacement. He was also found to have coronary artery disease and they debated if it should be stented. Patient evidently felt better and they decided to continue his care in the outpatient setting. Dr. Isidro and Dr. Bailey are in discussion with his care. Currently he denies any pain, fevers or chills headache, chest pain, palpitations, nausea or vomiting. At present, lying in the hospital bed, he is no longer short of breath. Nursing Notes Stated Complaint: SOB/HEART HAS BAD AORTA VALVE Chief Complaint: Respiratory Distress Allergies: Coded Allergies: No Known Allergies (Verified Allergy, Unknown, 10/28/16) Scheduled Carvedilol (Carvedilol) 3.125 Mg Tablet 3.125 MG PO BID Furosemide (Lasix) 40 Mg Tablet 40 MG PO DAILY Insulin Glargine (Lantus U100 Solostar Insulin Pen) 100 Unit/1 Ml Insuln.pen 30 UNIT SQ HS Lisinopril (Lisinopril) 10 Mg Tablet 10 MG PO DAILY Metformin ER (Metformin ER) 500 Mg Tablet 500 MG PO BID Simvastatin (Simvastatin) 40 Mg Tablet 40 MG PO HS Tamsulosin ER (Tamsulosin ER) 0.4 Mg Cap.er.24h 0.4 MG PO Evening General Time Seen by MD: 21:14 Chief Complaint Weakness Shortness of breath and weakness on exertion Hx Obtained From: Patient Arrived By: Walk-in Sudden in Onset?: Yes Onset Occurred: 46 - 59 minutes ago Symptom Duration: 1 - 15 minutes Context: Occurred at: [employer] Severity: Current: No pain currently Severity: Maximum: No pain Associated with: Reports: Dizziness, Shortness of breath, Weakness, Denies: Chest pain, Cough, Headache, Nausea, Pain Additional Notes: Near syncopal episode Exacerbated by: Standing up Relieved by: Rest Past Medical History Past Medical History Notes: Full code as of 2010 Past Medical History Pt is deaf and uses ASL 1. Asthma. 2. BPH. 3. Elevated cholesterol. 4. Diabetes. 5. Kidney disease 5. Gout. 6. Hypertension. 7. History of aortic stenosis. 8. Exertional dyspnea. 9. Compartment syndrome, right thigh. 10. Remote history of heart murmur. 11. Keen procedure. 12. Valvular heart disease 13. COPD 14. DJD 15. brain tumor Past Surgical History Knee surgery R thigh surg brain infection removal Smoking History Former Smoker Social History Other Social History: Good social support Ambulatory Status Independent Review of Systems Full Review of Systems Constitutional: Reports: Weakness - generalized, Denies: Chills, Fever Respiratory: Reports: Dyspnea on exertion, Shortness of breath Cardiovascular: Denies: Chest pain, Edema, Palpitations GI: Denies: Nausea, Vomiting Endocrine: Denies: Weight gain Neurologic: Reports: Dizziness, Lightheaded, Denies: Vision change Complete sys rev & neg: except as marked. Physical Exam Vital Signs Vital Signs Date Time Temp Pulse Resp B/P Pulse Ox O2 Delivery O2 Flow Rate FiO2 10/28/16 23:20 80 20 120/77 99 Room Air 10/28/16 20:54 36.5 86 16 103/71 99 Initial VS: Reviewed General/Constitutional: Well-developed, Well-nourished Head / Eyes: Atraumatic, Normocephalic, PERRL ENT: Mucous membranes moist, Conjunctiva normal, No scleral icterus Neck: Supple, Non-tender, Full range of motion Abdomen / GI: Soft, Non-tender, No guarding, No rebound, No distention Extremities: No swelling Skin: Warm, Dry, No cyanosis Neurologic: Alert, Oriented, Nonfocal Psychiatric: Mood/affect normal, Behavior normal, Normal thought content Respiratory / Chest: Breath sounds NL, No respiratory distress, No rales, No rhonchi, No wheezing Cardiovascular: Heart rate NL, Regular rhythm Heart Sounds / Murmur: Positive: Diastolic murmur present. (diastolic murmur appreciated at the apex, grade III/), Systolic murmur present.. (systolic murmur appreciated best at the second intercostal space grade V/) Lower Ext Edema: Negative: Pitting Interpretation & Diagnostics Lab Results Interpretation Result Diagram: 10/28/16213510/28/162135 Test 10/28/16 21:36 10/28/16 23:17 White Blood Count 11.2th/mm3 (3.8-10.1) Red Blood Count 4.39mil/mm3 (4.40-5.80) Hemoglobin 12.8g/dL (13.8-17.2) Hematocrit 37.0% (41.0-50.0) Mean Corpuscular Volume 84.3fL (81-100) Mean Corpuscular Hemoglobin 29.2pg (27.0-35.0) Mean Corpuscular Hemoglobin Concent 34.6% (32.0-37.0) Red Cell Distribution Width 13.5% (12.3-15.4) Platelet Count 241bil/L (150-400) Neutrophils (%) (Auto) 73.5% (40-74) Lymphocytes (%) (Auto) 15.3% (14-46) Monocytes (%) (Auto) 7.3% (4-12) Eosinophils (%) (Auto) 2.2% (0-5) Basophils (%) (Auto) 0.4% (0-3) Sodium Level 135mEq/L (134-144) Potassium Level 4.4mEq/L (3.5-5.2) Chloride Level 96mEq/L (97-108) Carbon Dioxide Level 24mmol/L (18-29) Blood Urea Nitrogen 37mg/dL (8-27) Creatinine 1.58mg/dL (0.76-1.27) Estimat Glomerular Filtration Rate 46mL/min (>59) Glucose Level 445mg/dL (60-99) Calcium Level 9.0mg/dL (8.5-10.1) Magnesium Level 1.3mg/dL (1.6-2.6) Total Bilirubin 0.4mg/dL (0.0-1.2) Aspartate Amino Transf (AST/SGOT) 24U/L (0-50) Alanine Aminotransferase (ALT/SGPT) 24U/L (0-44) Alkaline Phosphatase 81U/L (25-160) Troponin T 0.020ug/L (0.0-0.011) Total Protein 6.9g/dL (6.4-8.4) Albumin 4.0g/dL (3.4-5.0) Hold Aldana Top Tube Received (Received) Hold Urine Received (Received) ECG Interpretation ECG Interpretation: Sinus rhythm at a rate of 84 Prolonged LA interval 242 Left bundle branch block No significant changes when compared to EKG from 10/12/2016. Time: 21:20 Interpreted by: ED physician X-Ray Chest Interpretation Chest Xray Interpretation: Increase interstitial fluid with cephalization and cardiomegaly consistent with developing heart failure. View: Portable Interpretation / Wet Read by: Wet read ED physician Re-Eval/Medical Decision Med Decision/Clinical Course Patient presents to the ED with near syncopal episode with known severe aortic stenosis and mitral regurgitation. He had a similar episode previously on 2016. Based on his physical exam, previous echocardiogram, and chest x-ray today, patient has a diagnosis of critical aortic stenosis with worsening heart failure. Definitive treatment would be surgery. There has been ongoing conversations with Dr. Bailey and Dr. Isidro in [place] on whether or not patient will have surgery, whether it be open heart surgery versus transcatheter aortic valve replacement. Patient expressed that he wants to live and is willing to undergo surgery if surgery is indicated. ECHO from 10/11/2016 Interpretation Summary The left ventricle is normal in size. The ejection fraction is estimated to be 35-40%. Inferoseptum, apex and the distal anterior wall severely hypokinetic. There is worsening wall motions in inferior wall and the inferoseptum. Compared to the prior exam, the left ventricular function is mildly reduced. The right ventricle is normal size. Right ventricular systolic function is borderline reduced. There is severe mitral regurgitation. Compared to the prior echo study, there has been no change in the severity of mitral regurgitation. The aortic valve is severely calcified. Leaflet mobility is severely reduced. The peak aortic velocity is 3.65 m/sec. The aortic valve mean gradient is 37 mmHg. The peak aortic velocity on the previous exam was 4.2 m/sec. There is severe aortic stenosis.The calculated aortic valve area is 0.6 cm2. There is mild to moderate tricuspid regurgitation. Compared to the prior echo exam, there has been an increase in TR severity. The right ventricular systolic pressure is estimated at 49 mmHg assuming a right atrial pressure of 3 mm Hg. Compared to the prior echo exam, there has been an increase in the severity of pulmonary hypertension. Consultation #1: Consulted With: Cardiology Call Returned at: 23:09 Note: Will consult on pt. Suggests admit to hospitalist service at [facility] Consultation #2: Consulted With: Beef Pusher Call Returned at: 23:25 Plasticator: Will see patient, Accepts admit Note: will admit. Room [facility] Working on arranging ALS transport to [place] Discharge & Departure Primary Impression: Critical aortic valve stenosis Additional Impression: Heart failure Heart failure type: diastolic Heart failure chronicity: chronic Qualified Code: I50.32 - Chronic diastolic (congestive) heart failure Disposition: Transfer, [place] Discharge Condition All VS Reviewed: Yes Condition: Stable Patient Instructions: Aortic Stenosis (ED) Additional Instructions: The symptoms he experienced today were most likely caused by the stiffening of your aortic valve. Definitive treatment is surgery. We are transferring you to [place] where their cardiothoracic team can evaluate you and determine the next best steps going forward. Referrals: Lucia Baez PA-C (PCP) Attending Statement Patient seen and examined with Dr. Kim Syncopal episode similar to 2 weeks previously. Slightly elevated troponin but less than recent levels. Known critical aortic stenosis with atherosclerotic disease as well. They were planning on outpatient consultation and decision making options for cardiac intervention. At this point with the recurrent syncopal episode [facility] and may need more urgent cardiac surgery intervention He is clinically stable at this point and not having a STEMI Mild interstitial findings and cardiomegaly appreciated on chest x-ray. Again, currently clinically stable. Not given any Lasix at this time. Clinically does not have JVD does not have increased edema and has only minimal right basilar crackles. Agree with documentation and plan as above Sri Kim DO Oct 28, 2016 21:22 Beverly Martínez MD Oct 29, 2016 00:04
[2016-10-28 21:45] LABS: BASOPHILS % (AUTO) 0.4 % (0-3); EOSINOPHILS % (AUTO) 2.2 % (0-5); MONOCYTES % (AUTO) 7.3 % (4-12); Mean Corpuscular Hemoglobin 29.2 pg (27.0-35.0); Mean Corpuscular Volume 84.3 fL (81-100); NEUTROPHILS % (AUTO) 73.5 % (40-74); Platelet Count 241 bil/L (150-400)
[2016-10-28 21:56] LABS: TROPONIN T 0.02 ug/L (0.0-0.011)
[2016-10-28 22:07] LABS: Magnesium 1.3 mg/dL (1.6-2.6)
[2016-10-28 23:20] VITALS: BP 120/77; PULSE 80; RESP 20; O2SAT 99
[2016-10-29] MEDS ORDERED: Insulin GLARgine 100 Unit/mL Syringe SUBQ ONE
[2016-10-29 00:36] VITALS: BP 124/73; PULSE 77; RESP 18; O2SAT 99
--- NOTE | 2016-10-29 08:31 | DRSVH ---
PROCEDURE: X-RAY CHEST ONE VIEW, PORTABLE ([id number]) INDICATIONS: SHORT OF BREATH TECHNIQUE: One view of the chest was acquired. COMPARISON: None. FINDINGS: Surgical changes and devices: None. Lungs and pleura: No pleural effusions or pneumothorax. Lungs are clear. Mediastinum: Mediastinal contours appear normal. Heart size is normal. Bones and chest wall: No suspicious bony lesions. Overlying soft tissues appear unremarkable. IMPRESSION: Source of shortness of breath is not seen. Dictated by: Quirino Jose M.D. on 10/29/2016 at 8:29 Approved by: Quirino Jose M.D. on 10/29/2016 at 8:29
== END 2016-10-29 00:48 | disposition short-term general hospital (02) ==
LOC: SED 20:49
DX: I35.0 Nonrheumatic aortic (valve) stenosis (principal); I50.32 Chronic diastolic (congestive) heart failure; E11.9 Type 2 diabetes mellitus without complications; J45.909 Unspecified asthma, uncomplicated; I12.9 Hypertensive chronic kidney disease with stage 1 through stage 4 chronic kidney disease, or unspecified chronic kidney disease; N18.9 Chronic kidney disease, unspecified; H91.3 Deaf nonspeaking, not elsewhere classified; Z87.891 Personal history of nicotine dependence; Z79.4 Long term (current) use of insulin; Z79.84 Long term (current) use of oral hypoglycemic drugs
CPT/HCPCS: 36415; 71010; 80053; 82948; 83735; 84484; 85025; 93005; 96372; 99285; J1815